=== PATIENT | male | born 1950 | race Caucasian/White ===

== ENCOUNTER 2018-04-09 17:59 | Inpatient (IN) | payer OTHER, MEDICARE, BC ==
[~2018-04-09] VITALS: Ht 182.9 cm; Wt 95.0 kg
[2018-04-09 18:22] LABS: HEMATOCRIT 46.1 % (39.0-50.0); HEMOGLOBIN 15.1 g/dl (14.0-18.0); IMMATURE GRANULOCYTES 0.6 % (0.0-5.0); MEAN CELL VOLUME 94.3 fL CALC (80.0-100.0); MEAN CORPUSCULAR HGB 30.9 pG CALC (26.0-32.0); MEAN CORPUSCULAR HGB CONC 32.8 g/L CALC (32.0-36.0); NEUT# 7.35 thou/uL (1.82-7.42); RED BLOOD COUNT 4.89 mill/uL (4.70-6.10)
[2018-04-09 18:44] LABS: ALBUMIN 3.3 g/dL (3.2-5.0); ALKALINE PHOSPHATASE 78 u/l (38-126); ANION GAP 14 (6-22 (CALC)); BILIRUBIN, TOTAL 0.9 mg/dL (0.0-1.4); BUN 19 mg/dL (8-23); BUN/CREATININE RATIO 12 (12-20 (CALC)); CARBON DIOXIDE 25 mmol/l (22-30); CHLORIDE 104 mmol/l (95-108); CREATININE 1.6 mg/dL (0.7-1.3); GFR 43 ML/MIN (>=60 (CALC)); GFR FOR AFR.AMER. 52 ML/MIN (>=60 (CALC)); POTASSIUM 4.5 mmol/l (3.5-5.1); SGOT/AST 16 u/l (19-48); SODIUM 138 mmol/l (137-146); TOTAL PROTEIN 6.5 g/dL (6.3-8.2)
[2018-04-09 21:55] VITALS: BP 119/67
[2018-04-09 23:56] LABS: URINE BILIRUBIN - DIPSTICK NEGATIVE (NEGATIVE); URINE BLOOD DIPSTICK NEGATIVE (NEGATIVE); URINE COLOR YELLOW; URINE GLUCOSE - DIPSTICK NEGATIVE (NEGATIVE); URINE KETONE NEGATIVE (NEGATIVE); URINE LEUK ESTERASE NEGATIVE (Negative); URINE NITRITE - DIPSTICK NEGATIVE (Negative); URINE PROTEIN - DIPSTICK NEGATIVE (NEG-TRACE)
[2018-04-09 23:57] LABS: URINE CLARITY TURBID
[2018-04-10 00:05] VITALS: BP 120/58
[2018-04-10 04:15] VITALS: BP 107/64
[2018-04-10 08:36] VITALS: BP 142/75
[2018-04-10 11:19] VITALS: BP 126/75
[2018-04-10 12:25] LABS: HEMATOCRIT 49.2 % (39.0-50.0); HEMOGLOBIN 15.4 g/dl (14.0-18.0); IMMATURE GRANULOCYTES 0.5 % (0.0-5.0); MEAN CELL VOLUME 98.8 fL CALC (80.0-100.0); MEAN CORPUSCULAR HGB 30.9 pG CALC (26.0-32.0); MEAN CORPUSCULAR HGB CONC 31.3 g/L CALC (32.0-36.0); NEUT# 6.47 thou/uL (1.82-7.42); RED BLOOD COUNT 4.98 mill/uL (4.70-6.10); RED CELL DISTRI WIDTH 15.1 % (11.5-15.5)
[2018-04-10] MEDS ORDERED: NORTRIPTYLINE H75 MG PO (12:39)
[2018-04-10 12:42] LABS: ANION GAP 12 (6-22 (CALC)); BUN 14 mg/dL (8-23); BUN/CREATININE RATIO 21 (12-20 (CALC)); CARBON DIOXIDE 24 mmol/l (22-30); CHLORIDE 110 mmol/l (95-108); CREATININE 0.7 mg/dL (0.7-1.3); GFR > 60 ML/MIN (>=60 (CALC)); GFR FOR AFR.AMER. > 60 ML/MIN (>=60 (CALC)); POTASSIUM 4.6 mmol/l (3.5-5.1); SODIUM 140 mmol/l (137-146)
[2018-04-10] MEDS ORDERED: LYRICA50 MG PO (12:43)
[2018-04-10] MEDS ORDERED: COLACE100 MG PO (12:44)
[2018-04-10] MEDS ORDERED: LISINOPRIL10 MG PO (12:44)
[2018-04-10] MEDS ORDERED: COREG6.25 MG PO (12:46)
[2018-04-10] MEDS ORDERED: [UNRECOGNIZED DRUG - OTHER] PO (12:47)
[2018-04-10] MEDS ORDERED: MINIPRESS2 MG PO (12:47)
[2018-04-10] MEDS ORDERED: SYMBICORT1 AE1 PO (12:48)
[2018-04-10] MEDS ORDERED: GNP MELATONIN3 MG PO (12:48)
[2018-04-10] MEDS ORDERED: FOLIC ACID1 M1 PO (12:49)
[2018-04-10] MEDS ORDERED: [UNRECOGNIZED DRUG - OTHER] PO (12:49)
[2018-04-10] MEDS ORDERED: CLOPIDOGREL75 MG PO (12:49)
[2018-04-10] MEDS ORDERED: ZYLOPRIM300 MG PO (12:50)
[2018-04-10 16:20] VITALS: BP 128/74
[2018-04-10] MEDS ORDERED: ALBUTEROL0.5 % NEB (16:38)
[2018-04-10] MEDS ORDERED: PROVENTIL HFA PO (16:41)
[2018-04-10] MEDS ORDERED: AMMONIUM LAC122 TOP (16:42)
[2018-04-10] MEDS ORDERED: DICLOFENAC SODIUM1 % TOP (16:46)
[2018-04-10] MEDS ORDERED: METFORMIN500 M2 PO (16:51)
[2018-04-10] MEDS ORDERED: ULTRAM50 M1 PO (16:53)
[2018-04-10] MEDS ORDERED: CIPROFLOXACN500 MG PO (16:54)
[2018-04-10 20:00] VITALS: BP 113/53
[2018-04-11 00:36] VITALS: BP 115/59
[2018-04-11 05:20] VITALS: BP 112/56
[2018-04-11 05:41] LABS: ALBUMIN 3.1 g/dL (3.2-5.0); ALKALINE PHOSPHATASE 76 u/l (38-126); ANION GAP 12 (6-22 (CALC)); BILIRUBIN, TOTAL 0.5 mg/dL (0.0-1.4); BUN 13 mg/dL (8-23); BUN/CREATININE RATIO 23 (12-20 (CALC)); CARBON DIOXIDE 22 mmol/l (22-30); CHLORIDE 109 mmol/l (95-108); CREATININE 0.6 mg/dL (0.7-1.3); GFR > 60 ML/MIN (>=60 (CALC)); GFR FOR AFR.AMER. > 60 ML/MIN (>=60 (CALC)); HEMATOCRIT 43.5 % (39.0-50.0); HEMOGLOBIN 14.6 g/dl (14.0-18.0); IMMATURE GRANULOCYTES 0.6 % (0.0-5.0); MAGNESIUM 2.1 mg/dL (1.6-2.3); MEAN CELL VOLUME 93.1 fL CALC (80.0-100.0); MEAN CORPUSCULAR HGB 31.3 pG CALC (26.0-32.0); MEAN CORPUSCULAR HGB CONC 33.6 g/L CALC (32.0-36.0); NEUT# 7.35 thou/uL (1.82-7.42); POTASSIUM 4.7 mmol/l (3.5-5.1); RED BLOOD COUNT 4.67 mill/uL (4.70-6.10); RED CELL DISTRI WIDTH 14.6 % (11.5-15.5); SGOT/AST 17 u/l (19-48); SODIUM 139 mmol/l (137-146); TOTAL PROTEIN 6.2 g/dL (6.3-8.2)
[2018-04-11 08:19] VITALS: BP 140/64
[2018-04-11 11:51] VITALS: BP 149/79
[2018-04-11 16:00] VITALS: BP 153/73
[2018-04-11 19:53] VITALS: BP 153/79
[2018-04-12 00:21] VITALS: BP 141/71
[2018-04-12 04:00] VITALS: BP 138/71
[2018-04-12 05:29] LABS: HEMATOCRIT 45.2 % (39.0-50.0); HEMOGLOBIN 15.4 g/dl (14.0-18.0); IMMATURE GRANULOCYTES 0.5 % (0.0-5.0); MEAN CELL VOLUME 90.9 fL CALC (80.0-100.0); MEAN CORPUSCULAR HGB CONC 34.1 g/L CALC (32.0-36.0); NEUT# 8.83 thou/uL (1.82-7.42); RED BLOOD COUNT 4.97 mill/uL (4.70-6.10); RED CELL DISTRI WIDTH 14.7 % (11.5-15.5)
[2018-04-12 06:02] LABS: ALBUMIN 3.5 g/dL (3.2-5.0); ALKALINE PHOSPHATASE 82 u/l (38-126); ANION GAP 14 (6-22 (CALC)); BILIRUBIN, TOTAL 0.5 mg/dL (0.0-1.4); BUN 13 mg/dL (8-23); BUN/CREATININE RATIO 21 (12-20 (CALC)); CARBON DIOXIDE 26 mmol/l (22-30); CHLORIDE 105 mmol/l (95-108); CREATININE 0.6 mg/dL (0.7-1.3); GFR > 60 ML/MIN (>=60 (CALC)); GFR FOR AFR.AMER. > 60 ML/MIN (>=60 (CALC)); MAGNESIUM 2.1 mg/dL (1.6-2.3); POTASSIUM 4.1 mmol/l (3.5-5.1); SGOT/AST 17 u/l (19-48); SODIUM 140 mmol/l (137-146); TOTAL PROTEIN 6.7 g/dL (6.3-8.2)
[2018-04-12 07:36] VITALS: BP 130/74
[2018-04-12 11:20] VITALS: BP 139/76
[2018-04-12] MEDS ORDERED: DOXYCYCL HYC100 MG PO (15:20)
[2018-04-12] MEDS ORDERED: PREDNISONE10 MG PO (15:20)
== END 2018-04-12 16:38 | disposition home or self-care (01) | DRG 291 ==
LOC: ED 17:59 → ED-I 18:44 → ED 21:32 → MS2 21:33
PROVIDERS: Emergency Medicine; ADMIT Internal Medicine; ATTEND Internal Medicine Nephrology
DX: I11.0 Hypertensive heart disease with heart failure (principal); J96.02 Acute respiratory failure with hypercapnia; J96.01 Acute respiratory failure with hypoxia; J44.1 Chronic obstructive pulmonary disease with (acute) exacerbation; N17.9 Acute kidney failure, unspecified; E87.2 Acidosis; J44.0 Chronic obstructive pulmonary disease with (acute) lower respiratory infection; I50.41 Acute combined systolic (congestive) and diastolic (congestive) heart failure; J20.9 Acute bronchitis, unspecified; I25.2 Old myocardial infarction; F17.200 Nicotine dependence, unspecified, uncomplicated; R73.9 Hyperglycemia, unspecified; E78.5 Hyperlipidemia, unspecified; Z86.73 Personal history of transient ischemic attack (TIA), and cerebral infarction without residual deficits; Z95.828 Presence of other vascular implants and grafts
CPT/HCPCS: G0378; J1650

== ENCOUNTER 2020-07-14 19:36 | Observation (INO) | payer MEDICARE, BC ==
[~2020-07-14] VITALS: Ht 182.9 cm; Wt 82.0 kg
[~2020-07-14 19:36] MED LIST: ALBUTEROL0.5 % NEB; AMMONIUM LAC122 TOP; CIPROFLOXACN500 MG PO; CLOPIDOGREL75 MG PO; COLACE100 MG PO; COREG6.25 MG PO; DICLOFENAC SODIUM1 % TOP; DOXYCYCL HYC100 MG PO; FOLIC ACID1 M1 PO; GNP MELATONIN3 MG PO; LISINOPRIL10 MG PO; LYRICA50 MG PO; METFORMIN500 M2 PO; MINIPRESS2 MG PO; NORTRIPTYLINE H75 MG PO; PREDNISONE10 MG PO; PROVENTIL HFA PO; SYMBICORT1 AE1 PO; ULTRAM50 M1 PO; ZYLOPRIM300 MG PO; [UNRECOGNIZED DRUG - OTHER] PO; [UNRECOGNIZED DRUG - OTHER] PO
--- NOTE | 2020-07-14 19:36 | NUR ---
PT TO ROOM VIA EMS FOR BEDSIDE TRIAGE
--- NOTE | 2020-07-14 19:45 | NUR ---
PT NOT FORTHCOMING WITH INFORMATION REQUIRES FREQUENT REPEATED QUESTIONS TO OBTAIN ANSWERS, PT SOB STARTING TODAY WORSENING ALSO FEVER 99.8 AND REQUIRED FREQUENT REMINDERS THAT HE CANNOT HAVE A BLANKET UNTIL FEVER IMPROVED. LLE REDDENED AND SORE WITH LARGE SKIN TEAR THAT OCCURED DURING FALL, THAT HAPPENED APPARENTLY JUST PRIOR TO EMS ARRIVAL. LUNGS ARE CORASE WITH DYSPNEA AND MOIST COUGH NOTED. O2 AT HOME THAT PT WEARS PRN PER HIM HE DOESN'T KNOW HOW MANY LITERS, PLACED ON 2L VIA NC.
[2020-07-14 20:22] LABS: HEMATOCRIT 45.4 % (39.0-50.0); HEMOGLOBIN 14.8 g/dl (14.0-18.0); IMMATURE GRANULOCYTES 0.8 % (0.0-5.0); MEAN CORPUSCULAR HGB 29.8 pG CALC (26.0-32.0); MEAN CORPUSCULAR HGB CONC 32.6 g/dL CAL (32.0-36.0); NEUT# 11.51 thou/uL (1.82-7.42); RED BLOOD COUNT 4.96 mill/uL (4.70-6.10); RED CELL DISTRI WIDTH 14.8 % (11.5-15.5)
[2020-07-14 20:23] LABS: MEAN CELL VOLUME 91.5 fL CALC (80.0-100.0)
[2020-07-14 20:33] LABS: ALBUMIN 4.3 g/dL (3.2-5.0); ALKALINE PHOSPHATASE 82 u/l (38-126); ANION GAP 12 (6-22 (CALC)); BILIRUBIN, TOTAL 1.1 mg/dL (0.0-1.4); BUN 12 mg/dL (8-23); BUN/CREATININE RATIO 15 (12-20 (CALC)); CARBON DIOXIDE 27 mmol/l (22-30); CHLORIDE 99 mmol/l (95-108); CREATININE 0.8 mg/dL (0.7-1.3); GFR > 60 ML/MIN (>=60 (CALC)); GFR FOR AFR.AMER. > 60 ML/MIN (>=60 (CALC)); POTASSIUM 4.3 mmol/l (3.5-5.1); SGOT/AST 26 u/l (19-48); SODIUM 134 mmol/l (137-146); TOTAL PROTEIN 8.5 g/dL (6.3-8.2)
[2020-07-14 20:38] LABS: PROTHROMBIN TIME 10.1 SECONDS (9.0-12.5)
[2020-07-14 20:45] LABS: MYOGLOBIN 34 ng/mL (0 - 121)
--- NOTE | 2020-07-14 20:57 | NUR ---
RT PROVIDED NEB TREATMENT AND PT MEDICATED ORDERED, WILL CONTINUE TO MONITOR.
--- NOTE | 2020-07-14 21:00 | NUR ---
PT UNCOOPERATIVE WIWHT COVID SWAB FINALLY ABLE TO OBTAIN AFTER PT EDUCATED REGARDING HAVING TO BE IN THE COVID HALLWAY WIHTOUT SWAB.
--- NOTE | 2020-07-14 21:30 | NUR ---
TA BEDSIDE PT UNCOOPERQTIVE WITH WOUND CARE AND TELLS NURSE TO "JUST QUIT GOD DAMMIT THAT HURTS" ATTEMPTED TO EDUCATED PT REGARDING THE IMPORTANCE OF WOUND CARE PT SHRUGS HIS SHOULDERS AND DECLINES FURTHER WOUND CARE. STATES "TRY LIVING WITH HIM HE'S HARD HEADED AND WON'T QUIT SMOKING EITHER".
[2020-07-14 21:41] LABS: URINE BILIRUBIN - DIPSTICK NEGATIVE (NEGATIVE); URINE BLOOD DIPSTICK NEGATIVE (NEGATIVE); URINE COLOR YELLOW; URINE GLUCOSE - DIPSTICK NEGATIVE (NEGATIVE); URINE KETONE NEGATIVE (NEGATIVE); URINE LEUK ESTERASE NEGATIVE (NEGATIVE); URINE PROTEIN - DIPSTICK NEGATIVE (NEG-TRACE)
[2020-07-14 21:42] LABS: URINE NITRITE - DIPSTICK NEGATIVE (Negative)
--- NOTE | 2020-07-14 22:40 | NUR ---
REPORT CALLED TO JOSE MORRISON ONMED SURG
[2020-07-14 22:57] VITALS: BP 127/68
--- NOTE | 2020-07-14 22:58 | NUR ---
PT RECEIVED FROM ED TO ROOM 271. ARRIVES VIA STRETCHER ACCOMPANIED BY JULIANNA MORRISON. PT AMBULATORY TO BED. GAIT UNSTEADY. PT DENIES PAIN AT THIS TIME. ORIENTED TO UNIT, ROOM, CALL BORJA, LIGHTS, TV. ICE WATER PROVIDED. CALL BORJA WITHIN REACH. AGREES TO CALL PRN.
--- NOTE | 2020-07-14 23:05 | NUR ---
PT TRANSPORTED TO MED SURG VIA STRETCHER AND MAX SLIDE ASSIST TO BED, ACCEPTING NURSE JOSE PRESENT AT ARRIVAL. ALL BELONGINGS WITH PATIENT.
--- NOTE | 2020-07-15 00:10 | NUR ---
PHYSICAL ASSESMENT COMPLETE. PT CURRENTLY DENIES PAIN OR DISCOMFORT. SCHEDULED MEDICATIONS AND PRN MEDICATION ADMINISTERED, SEE E-MAR. PT DENIES ANY NEEDS AT THIS TIME. PLAN OF CARE REVIEWED, PT DENIES QUESTIONS, VERBALIZES UNDERSTANDING. ITEMS WITHIN REACH, BED LOCKED IN LOW POSITION W/ BEDRAILS UP X2. CALL BORJA WITHIN REACH, AGREES TO CALL PRN.
[2020-07-15 04:00] VITALS: BP 115/66
--- NOTE | 2020-07-15 04:12 | NUR ---
PT RESTING IN BED, NO SIGNS OF DISTRESS NOTED, RESP DIMINISHED. PT VOICES NO NEEDS OR COMPLAINTS AT THIS TIME. CALL LIGHT IN REACH, CONTINUE TO MONITOR.
[2020-07-15 05:55] LABS: HEMOGLOBIN 13.7 g/dl (14.0-18.0); IMMATURE GRANULOCYTES 0.8 % (0.0-5.0); MEAN CELL VOLUME 90.9 fL CALC (80.0-100.0); MEAN CORPUSCULAR HGB 29.7 pG CALC (26.0-32.0); MEAN CORPUSCULAR HGB CONC 32.6 g/dL CAL (32.0-36.0); NEUT# 9.72 thou/uL (1.82-7.42); RED BLOOD COUNT 4.62 mill/uL (4.70-6.10); RED CELL DISTRI WIDTH 14.8 % (11.5-15.5)
[2020-07-15 06:16] LABS: ANION GAP 10 (6-22 (CALC)); BUN 10 mg/dL (8-23); BUN/CREATININE RATIO 16 (12-20 (CALC)); CARBON DIOXIDE 27 mmol/l (22-30); CHLORIDE 103 mmol/l (95-108); CREATININE 0.6 mg/dL (0.7-1.3); GFR > 60 ML/MIN (>=60 (CALC)); GFR FOR AFR.AMER. > 60 ML/MIN (>=60 (CALC)); POTASSIUM 3.8 mmol/l (3.5-5.1); SODIUM 135 mmol/l (137-146)
--- NOTE | 2020-07-15 07:00 | NUR ---
PT REPORT RECEIVED FROM NIGHT NURSEJOSE.
[2020-07-15 07:53] VITALS: BP 128/73
--- NOTE | 2020-07-15 08:00 | NUR ---
PT WAS FOUND RESTING IN BED;PT IS A&O X3;VS AND ASSESSMENT WERE COMPLETED AT THIS TIME;HEART SOUNDS ARE REGULAR IN RATE AND RHYTHM;LUNG SOUNDS ARE DIMINISHED WITH WHEEZES NOTED THROUGHOUT;RESPIRATIONS ARE EVEN WITH EXERTIONAL SOB ON O2 @2L VIA NC;PT HAS 2+EDEMA IN LEFT FOOT;PT ALSO HAS A SKIN TEAR ON HIS LEFT PAUL THAT IS COVERED WITH A DRESSING THAT IS CDI;LEFT FOOT IS ELEVATED ON PILLOWS TO HELP OFFLOAD PRESSURE;#16G IV IN LFA IS RUNNING NS @80ML/HR;IV SITE IS FREE OF COMPLICATIONS;SAFETY PRECAUTIONS IN PLACE;CALL LIGHT WITHIN REACH;BED IN LOWEST POSITION;WILL CONTINUE TO MONITOR.
[2020-07-15] MEDS ORDERED: OXYCODONE15 MG PO (08:08)
--- NOTE | 2020-07-15 08:59 | NUR ---
AND AR JEFFERSON AT BEDSIDE DISCUSSING POC WITH PT.
--- NOTE | 2020-07-15 12:00 | NUR ---
PT WAS FOUND SLEEPING IN BED;O2 @3L VIA NC IS IN PLACE;#16G IV IN LFA IS RUNNING NS @80ML/HR;IV SITE IS FREE OF COMPLICATIONS;SAFETY PRECAUTIONS IN PLACE;CALL LIGHT WITHIN REACH;BED IN LOWEST POSITION;WILL CONTINUE TO MONITOR.
[2020-07-15 15:36] VITALS: BP 139/64
--- NOTE | 2020-07-15 16:00 | NUR ---
PT WAS FOUND SLEEPING IN BED;#16G IV IN LFA IS RUNNING NS @80ML/HR;IV SITE IS FREE OF COMPLICATIONS;O2 @3L VIA NC IS IN PLACE;SAFETY PRECAUTIONS IN PLACE;CALL LIGHT WITHIN REACH;BED IN LOWEST POSITION;WILL CONTINUE TO MONITOR.
[2020-07-15 19:00] VITALS: BP 116/59
--- NOTE | 2020-07-15 20:12 | NUR ---
PHYSICAL ASSESMENT COMPLETE. PT CURRENTLY DENIES PAIN BUT HAS A NON PRODUCTIVE COUGH. SCHEDULED MEDICATIONS AND PRN MEDICATION ADMINISTERED, SEE E-MAR. PT DENIES ANY NEEDS AT THIS TIME. PLAN OF CARE REVIEWED, PT DENIES QUESTIONS, VERBALIZES UNDERSTANDING. ITEMS WITHIN REACH, BED LOCKED IN LOW POSITION W/ BEDRAILS UP X2. CALL BORJA WITHIN REACH, AGREES TO CALL PRN.
[2020-07-16 03:40] VITALS: BP 132/64
[2020-07-16 05:32] LABS: HEMATOCRIT 37.3 % (39.0-50.0); HEMOGLOBIN 12.1 g/dl (14.0-18.0); MEAN CELL VOLUME 92.6 fL CALC (80.0-100.0); MEAN CORPUSCULAR HGB CONC 32.4 g/dL CAL (32.0-36.0); RED BLOOD COUNT 4.03 mill/uL (4.70-6.10); RED CELL DISTRI WIDTH 14.9 % (11.5-15.5)
--- NOTE | 2020-07-16 05:51 | NUR ---
PT LAYING IN BED WITH EYES CLOSED, APPEARS TO BE SLEEPING, APPEARS COMFORTABLE AND IN NO DISTRESS. RESPIRATIONS REGULAR AND UNLABORED. ITEMS REMAIN WITHIN REACH, CALL BORJA REMAINS WITHIN REACH. BED REMAINS LOCKED AND IN LOW POSITION WITH BEDRAILS UP X2. WILL CONTINUE TO MONITOR.
[2020-07-16 05:52] LABS: ANION GAP 7 (6-22 (CALC)); BUN 16 mg/dL (8-23); BUN/CREATININE RATIO 28 (12-20 (CALC)); CARBON DIOXIDE 27 mmol/l (22-30); CHLORIDE 107 mmol/l (95-108); CREATININE 0.6 mg/dL (0.7-1.3); GFR > 60 ML/MIN (>=60 (CALC)); GFR FOR AFR.AMER. > 60 ML/MIN (>=60 (CALC)); POTASSIUM 4.2 mmol/l (3.5-5.1); SODIUM 137 mmol/l (137-146)
[2020-07-16 07:05] VITALS: BP 106/57
--- NOTE | 2020-07-16 08:00 | NUR ---
PT WAS FOUND RESTING IN BED EATING BREAKFAST;PT IS A&O X3;VS AND ASSESSMENT WERE COMPLETED;PT HAS NO REPORTS OF PAIN AT THIS TIME;HEART SOUNDS ARE REGULAR IN RATE AND RHYTHM;LUNG SOUNDS ARE DIMINISHED THROUGHOUT WITH WHEEZING NOTED;RESPIRATIONS ARE EVEN AND UNLABORED ON O2 @3L VIA NC;PT DOES HAVE EXERTIONAL SOB NOTED WELL;#16G IV IN LFA IS RUNNING NS @80ML/HR;IV SITE IS FREE OF COMPLICATIONS;SAFETY PRECAUTIONS IN PLACE;CALL LIGHT WITHIN REACH;BED IN LOWEST POSITION;WILL CONTINUE TO MONITOR.
[2020-07-16 09:04] VITALS: BP 106/57
--- NOTE | 2020-07-16 10:11 | NUR ---
PHYSICAL THERAPY AT BEDSIDE WORKING WITH PT.
--- NOTE | 2020-07-16 10:37 | NUR ---
Pt seen this am for treatment. He was without complaint, resting in bed. Pt moved supine to and from sit indep, sit to and from stand with supervisio, he did sit down one time with decreased control. He did not want help or therapist to close but gait belt in place and therapist close enough to assist. Gait with RW 40' with supervision/CGA. LE ex performed in bed including AROM/ankle pumps and isometric glut and quadsets. [facility] would benefit from home health to return to [facility].
[2020-07-16] MEDS ORDERED: DOXYCYCL HYC100 MG PO (10:57)
[2020-07-16] MEDS ORDERED: PREDNISONE10 MG PO (10:57)
--- NOTE | 2020-07-16 12:00 | NUR ---
PT WAS FOUND RESTING IN BED EATING LUNCH;PT HAS NO REPORTS OF PAIN AT THIS TIME;O2 @3L VIA NC IS IN PLACE;#16G IV IN LFA IS RUNNING NS @80ML/HR;IV SITE IS FREE OF COMPLICATIONS;SAFETY PRECAUTIONS IN PLACE;CALL LIGHT WITHIN REACH;BED IN LOWEST POSITION;WILL CONTINUE TO MONITOR.
--- NOTE | 2020-07-16 14:36 | NUR ---
Discharge instructions given. Patient verbalizes understanding of same. Discharged in stable condition via Wheelchair to Home with family. All belongings sent with pt. PT WAS GIVEN DISCHARGE PACKET AND PRESCRIPTIONS;DISCHARGE INSTRUCTIONS WERE EXPLAINED WELL PRESCRIPTIONS;PT EXPRESSED UNDERSTANDING AND HAD NO FURTHER QUESTIONS;SIGNATURE OBTAINED;IV WAS REMOVED WITH NO COMPLICATIONS AND CATHETER INTACT;TELE WAS REMOVED;PT WAS TRANSPORTED IN STABLE CONDITION VIA WC TO [facility] ACCOMPANIED BY STAFF;ALL PT BELONGINGS WERE SENT WITH PT;PT WILL BE TRANSPORTED HOME WITH FAMILY.
--- NOTE | 2020-07-17 11:28 | NUR ---
PRELIM BLOOD CX SHOWS GRAM POSITIVE COCCI IN 2 OF 4 BOTTLES, SAME SET. LIKELY CONTAMINANT. SPUTUM CX SHOWS PSEUDOMONAS. RESULTS REPORTED TO DR OSORIO, NEW RX FOR CIPROFLOXACIN 750MG PO BID X7 DAYS CALLED IN TO [facility]. CALLED PT LM, WILL SEND CERTIFIED LETTER IF I DONT HEAR BACK NOTIFYING OF RX CHANGE
--- NOTE | 2020-07-17 11:45 | NUR ---
pt called back, aware of abx change
--- NOTE | 2020-07-18 11:16 | NUR ---
FINAL BLOOD CX SHOWS KOCURIA SPECIES, CONTAMINANT. DR OSORIO NOTIFIED
== END 2020-07-16 14:36 | disposition home health service (06) ==
LOC: ED 19:36 → ED-I 21:16 → ED 21:30 → MS2 21:31
PROVIDERS: Family Medicine; Nurse Practitioner; ADMIT Internal Medicine; ATTEND Internal Medicine
DX: J44.1 Chronic obstructive pulmonary disease with (acute) exacerbation (principal); L03.116 Cellulitis of left lower limb; S81.812A Laceration without foreign body, left lower leg, initial encounter; E11.51 Type 2 diabetes mellitus with diabetic peripheral angiopathy without gangrene; I10 Essential (primary) hypertension; E11.40 Type 2 diabetes mellitus with diabetic neuropathy, unspecified; I25.10 Atherosclerotic heart disease of native coronary artery without angina pectoris; L28.0 Lichen simplex chronicus; G89.4 Chronic pain syndrome; F17.200 Nicotine dependence, unspecified, uncomplicated; W19.XXXA Unspecified fall, initial encounter; Z79.84 Long term (current) use of oral hypoglycemic drugs; Z95.828 Presence of other vascular implants and grafts; Z86.73 Personal history of transient ischemic attack (TIA), and cerebral infarction without residual deficits; Z91.81 History of falling; Z20.822 Contact with and (suspected) exposure to COVID-19
CPT/HCPCS: G0378; J1650

== ENCOUNTER 2021-06-25 18:02 | Emergency (ER) | payer MEDICARE, BC ==
[2021-06-25] VITALS (9 sets, daily range): BP systolic 108–140; BP diastolic 55–78
[~2021-06-25] VITALS: Ht 182.9 cm; Wt 85.0 kg
[~2021-06-25 18:02] MED LIST changes: +OXYCODONE15 MG PO
[2021-06-25 19:23] LABS: HEMATOCRIT 40.8 % (39.0-50.0); HEMOGLOBIN 13.3 g/dl (14.0-18.0); IMMATURE GRANULOCYTES 0.3 % (0.0-5.0); MEAN CELL VOLUME 94.2 fL CALC (80.0-100.0); MEAN CORPUSCULAR HGB 30.7 pG CALC (26.0-32.0); MEAN CORPUSCULAR HGB CONC 32.6 g/dL CAL (32.0-36.0); NEUT# 4.01 thou/uL (1.82-7.42); RED BLOOD COUNT 4.33 mill/uL (4.70-6.10); RED CELL DISTRI WIDTH 14.5 % (11.5-15.5)
[2021-06-25 19:33] LABS: ALBUMIN 3.5 g/dL (3.2-5.0); ALKALINE PHOSPHATASE 71 u/l (38-126); ANION GAP 10 (6-22 (CALC)); BILIRUBIN, TOTAL 0.7 mg/dL (0.0-1.4); BUN 10 mg/dL (8-23); BUN/CREATININE RATIO 12 (12-20 (CALC)); CARBON DIOXIDE 28 mmol/l (22-30); CHLORIDE 102 mmol/l (95-108); CREATININE 0.9 mg/dL (0.7-1.3); GFR > 60 ML/MIN (>=60 (CALC)); GFR FOR AFR.AMER. > 60 ML/MIN (>=60 (CALC)); POTASSIUM 3.8 mmol/l (3.5-5.1); SGOT/AST 19 u/l (19-48); SODIUM 136 mmol/l (137-146); TOTAL PROTEIN 7.1 g/dL (6.3-8.2)
[2021-06-25] MEDS ORDERED: BACTRIM DS1 TAB PO (19:38)
== END 2021-06-25 21:27 | disposition home or self-care (01) ==
LOC: ED 18:02
PROVIDERS: Emergency Medicine
DX: S81.812A Laceration without foreign body, left lower leg, initial encounter (principal); L08.9 Local infection of the skin and subcutaneous tissue, unspecified; J44.9 Chronic obstructive pulmonary disease, unspecified; F17.200 Nicotine dependence, unspecified, uncomplicated; B95.61 Methicillin susceptible Staphylococcus aureus infection as the cause of diseases classified elsewhere; W22.8XXA Striking against or struck by other objects, initial encounter; Z86.73 Personal history of transient ischemic attack (TIA), and cerebral infarction without residual deficits; Z95.828 Presence of other vascular implants and grafts; Z85.828 Personal history of other malignant neoplasm of skin

== ENCOUNTER 2021-07-18 12:30 | Emergency (ER) | payer MEDICARE, BC ==
[~2021-07-18] VITALS: Ht 185.4 cm; Wt 84.0 kg
[~2021-07-18 12:30] MED LIST changes: +BACTRIM DS1 TAB PO
[2021-07-18 13:43] LABS: HEMATOCRIT 42.6 % (39.0-50.0); HEMOGLOBIN 13.3 g/dl (14.0-18.0); IMMATURE GRANULOCYTES 0.2 % (0.0-5.0); MEAN CELL VOLUME 96.6 fL CALC (80.0-100.0); MEAN CORPUSCULAR HGB 30.2 pG CALC (26.0-32.0); MEAN CORPUSCULAR HGB CONC 31.2 g/dL CAL (32.0-36.0); NEUT# 3.43 thou/uL (1.82-7.42); RED BLOOD COUNT 4.41 mill/uL (4.70-6.10); RED CELL DISTRI WIDTH 14.6 % (11.5-15.5)
[2021-07-18 13:54] LABS: ALBUMIN 3.5 g/dL (3.2-5.0); ALKALINE PHOSPHATASE 79 u/l (38-126); ANION GAP 11 (6-22 (CALC)); BILIRUBIN, TOTAL 0.6 mg/dL (0.0-1.4); BUN 6 mg/dL (8-23); BUN/CREATININE RATIO 10 (12-20 (CALC)); CARBON DIOXIDE 29 mmol/l (22-30); CHLORIDE 103 mmol/l (95-108); CREATININE 0.7 mg/dL (0.7-1.3); GFR > 60 ML/MIN (>=60 (CALC)); GFR FOR AFR.AMER. > 60 ML/MIN (>=60 (CALC)); SGOT/AST 21 u/l (19-48); SODIUM 139 mmol/l (137-146); TOTAL PROTEIN 7.1 g/dL (6.3-8.2)
[2021-07-18 14:35] LABS: INTERNATIONAL NORMALIZED RATIO 0.9 RATIO (0.7-1.3); PROTHROMBIN TIME 9.9 SECONDS (9.0-12.5)
[2021-07-18] MEDS ORDERED: ELIQUIS5 MG PO (15:45)
[2021-07-18 16:31] VITALS: BP 139/81
== END 2021-07-18 16:20 | disposition home or self-care (01) ==
LOC: ED 12:30
PROVIDERS: Emergency Medicine
DX: I82.431 Acute embolism and thrombosis of right popliteal vein (principal); E11.42 Type 2 diabetes mellitus with diabetic polyneuropathy; I73.9 Peripheral vascular disease, unspecified; L97.823 Non-pressure chronic ulcer of other part of left lower leg with necrosis of muscle; R22.41 Localized swelling, mass and lump, right lower limb

== ENCOUNTER 2021-07-25 13:27 | Observation (INO) | payer OTHER, MEDICARE, BC ==
[~2021-07-25] VITALS: Ht 185.4 cm; Wt 85.0 kg
[~2021-07-25 13:27] MED LIST changes: +ELIQUIS5 MG PO
[2021-07-25 14:25] LABS: HEMATOCRIT 42.6 % (39.0-50.0); HEMOGLOBIN 13.3 g/dl (14.0-18.0); IMMATURE GRANULOCYTES 0.5 % (0.0-5.0); MEAN CELL VOLUME 94.7 fL CALC (80.0-100.0); MEAN CORPUSCULAR HGB 29.6 pG CALC (26.0-32.0); MEAN CORPUSCULAR HGB CONC 31.2 g/dL CAL (32.0-36.0); NEUT# 3.99 thou/uL (1.82-7.42); RED BLOOD COUNT 4.5 mill/uL (4.70-6.10); RED CELL DISTRI WIDTH 14.2 % (11.5-15.5)
[2021-07-25 14:54] LABS: ALBUMIN 3.2 g/dL (3.2-5.0); ALKALINE PHOSPHATASE 78 u/l (38-126); BILIRUBIN, TOTAL 0.4 mg/dL (0.0-1.4); BUN 6 mg/dL (8-23); BUN/CREATININE RATIO 9 (12-20 (CALC)); CHLORIDE 106 mmol/l (95-108); CREATININE 0.7 mg/dL (0.7-1.3); GFR > 60 ML/MIN (>=60 (CALC)); GFR FOR AFR.AMER. > 60 ML/MIN (>=60 (CALC)); LIPASE 50 u/l (23-300); SGOT/AST 16 u/l (19-48); SODIUM 139 mmol/l (137-146); TOTAL PROTEIN 6.5 g/dL (6.3-8.2)
[2021-07-25 15:02] LABS: ANION GAP 2 (6-22 (CALC)); CARBON DIOXIDE 35 mmol/l (22-30)
[2021-07-25 16:19] LABS: INTERNATIONAL NORMALIZED RATIO 1.9 RATIO (0.7-1.3); PROTHROMBIN TIME 19.2 SECONDS (9.0-12.5)
[2021-07-25 20:07] VITALS: BP 127/67
[2021-07-26 00:36] VITALS: BP 113/60
[2021-07-26 04:24] VITALS: BP 114/61
[2021-07-26 05:27] LABS: HEMATOCRIT 43.6 % (39.0-50.0); HEMOGLOBIN 13.8 g/dl (14.0-18.0); MEAN CELL VOLUME 94.8 fL CALC (80.0-100.0); MEAN CORPUSCULAR HGB CONC 31.7 g/dL CAL (32.0-36.0); RED BLOOD COUNT 4.6 mill/uL (4.70-6.10); RED CELL DISTRI WIDTH 14.3 % (11.5-15.5)
[2021-07-26 06:04] LABS: ANION GAP 8 (6-22 (CALC)); BUN 9 mg/dL (8-23); BUN/CREATININE RATIO 13 (12-20 (CALC)); CARBON DIOXIDE 31 mmol/l (22-30); CHLORIDE 105 mmol/l (95-108); CREATININE 0.7 mg/dL (0.7-1.3); GFR > 60 ML/MIN (>=60 (CALC)); GFR FOR AFR.AMER. > 60 ML/MIN (>=60 (CALC)); MAGNESIUM 2.2 mg/dL (1.6-2.3); POTASSIUM 4.1 mmol/l (3.5-5.1); SODIUM 140 mmol/l (137-146)
[2021-07-26 08:23] VITALS: BP 128/68
[2021-07-26 08:33] LABS: INTERNATIONAL NORMALIZED RATIO 1.1 RATIO (0.7-1.3); PROTHROMBIN TIME 11.4 SECONDS (9.0-12.5)
[2021-07-26 11:02] VITALS: BP 125/69
[2021-07-26] MEDS ORDERED: KLONOPIN2 MG PO (11:19)
[2021-07-26] MEDS ORDERED: TADALAFIL5 MG PO (11:21)
[2021-07-26 14:42] VITALS: BP 103/52
[2021-07-26 18:54] VITALS: BP 127/65
[2021-07-27] VITALS (8 sets, daily range): BP systolic 110–126; BP diastolic 53–84
[2021-07-27 05:13] LABS: HEMATOCRIT 40.5 % (39.0-50.0); HEMOGLOBIN 12.8 g/dl (14.0-18.0); IMMATURE GRANULOCYTES 0.3 % (0.0-5.0); MEAN CELL VOLUME 95.1 fL CALC (80.0-100.0); MEAN CORPUSCULAR HGB CONC 31.6 g/dL CAL (32.0-36.0); NEUT# 11.33 thou/uL (1.82-7.42); RED BLOOD COUNT 4.26 mill/uL (4.70-6.10); RED CELL DISTRI WIDTH 14.3 % (11.5-15.5)
[2021-07-27 05:47] LABS: ALBUMIN 2.9 g/dL (3.2-5.0); ALKALINE PHOSPHATASE 61 u/l (38-126); ANION GAP 6 (6-22 (CALC)); BILIRUBIN, TOTAL 0.2 mg/dL (0.0-1.4); BUN 18 mg/dL (8-23); BUN/CREATININE RATIO 28 (12-20 (CALC)); CARBON DIOXIDE 30 mmol/l (22-30); CHLORIDE 108 mmol/l (95-108); CREATININE 0.6 mg/dL (0.7-1.3); GFR > 60 ML/MIN (>=60 (CALC)); GFR FOR AFR.AMER. > 60 ML/MIN (>=60 (CALC)); MAGNESIUM 2.2 mg/dL (1.6-2.3); POTASSIUM 4.2 mmol/l (3.5-5.1); SGOT/AST 13 u/l (19-48); SODIUM 139 mmol/l (137-146)
[2021-07-28 00:24] VITALS: BP 112/63
[2021-07-28 04:57] VITALS: BP 141/67
[2021-07-28 05:27] LABS: HEMATOCRIT 46.4 % (39.0-50.0); HEMOGLOBIN 14.7 g/dl (14.0-18.0); IMMATURE GRANULOCYTES 0.7 % (0.0-5.0); MEAN CELL VOLUME 95.3 fL CALC (80.0-100.0); MEAN CORPUSCULAR HGB 30.2 pG CALC (26.0-32.0); MEAN CORPUSCULAR HGB CONC 31.7 g/dL CAL (32.0-36.0); NEUT# 11.59 thou/uL (1.82-7.42); RED BLOOD COUNT 4.87 mill/uL (4.70-6.10); RED CELL DISTRI WIDTH 14.3 % (11.5-15.5)
[2021-07-28 05:51] LABS: ALBUMIN 3.1 g/dL (3.2-5.0); ALKALINE PHOSPHATASE 60 u/l (38-126); ANION GAP 9 (6-22 (CALC)); BILIRUBIN, TOTAL 0.3 mg/dL (0.0-1.4); BUN 21 mg/dL (8-23); BUN/CREATININE RATIO 35 (12-20 (CALC)); CARBON DIOXIDE 27 mmol/l (22-30); CHLORIDE 106 mmol/l (95-108); CREATININE 0.6 mg/dL (0.7-1.3); GFR > 60 ML/MIN (>=60 (CALC)); GFR FOR AFR.AMER. > 60 ML/MIN (>=60 (CALC)); MAGNESIUM 2.1 mg/dL (1.6-2.3); POTASSIUM 4.8 mmol/l (3.5-5.1); SGOT/AST 20 u/l (19-48); SODIUM 137 mmol/l (137-146); TOTAL PROTEIN 6.2 g/dL (6.3-8.2)
[2021-07-28 07:21] VITALS: BP 119/65
[2021-07-28 10:40] VITALS: BP 122/62
[2021-07-28] MEDS ORDERED: VIBRAMYCIN100 M2 PO (11:46)
[2021-07-28] MEDS ORDERED: PREDNISONE10 MG PO (11:47)
== END 2021-07-28 13:23 | disposition home health service (06) | DRG 190 ==
LOC: ED 13:27 → ED-I 16:55 → ED 17:05 → MS2 17:06
PROVIDERS: Nurse Practitioner; ADMIT Internal Medicine; ATTEND Internal Medicine
DX: J44.1 Chronic obstructive pulmonary disease with (acute) exacerbation (principal); J18.9 Pneumonia, unspecified organism; J44.0 Chronic obstructive pulmonary disease with (acute) lower respiratory infection; I82.401 Acute embolism and thrombosis of unspecified deep veins of right lower extremity; R09.02 Hypoxemia; S81.802A Unspecified open wound, left lower leg, initial encounter; L89.159 Pressure ulcer of sacral region, unspecified stage; I10 Essential (primary) hypertension; E11.40 Type 2 diabetes mellitus with diabetic neuropathy, unspecified; I25.10 Atherosclerotic heart disease of native coronary artery without angina pectoris; F41.9 Anxiety disorder, unspecified; G89.4 Chronic pain syndrome; F17.210 Nicotine dependence, cigarettes, uncomplicated; X58.XXXA Exposure to other specified factors, initial encounter; Z79.01 Long term (current) use of anticoagulants; Z86.73 Personal history of transient ischemic attack (TIA), and cerebral infarction without residual deficits; Z95.828 Presence of other vascular implants and grafts; Z95.5 Presence of coronary angioplasty implant and graft; Z95.820 Peripheral vascular angioplasty status with implants and grafts; Z20.822 Contact with and (suspected) exposure to COVID-19
CPT/HCPCS: G0378; Q9967

== ENCOUNTER 2021-08-01 21:14 | Observation (INO) | payer OTHER, MEDICARE, BC ==
[~2021-08-01] VITALS: Ht 182.9 cm; Wt 95.0 kg
[~2021-08-01 21:14] MED LIST changes: +KLONOPIN2 MG PO; +TADALAFIL5 MG PO; +VIBRAMYCIN100 M2 PO
[2021-08-01] MEDS ORDERED: WALKER/ADULT/FOLDING XX (23:00)
[2021-08-01 23:56] LABS: HEMATOCRIT 42.2 % (39.0-50.0); HEMOGLOBIN 13.4 g/dl (14.0-18.0); IMMATURE GRANULOCYTES 1.2 % (0.0-5.0); MEAN CELL VOLUME 95.5 fL CALC (80.0-100.0); MEAN CORPUSCULAR HGB 30.3 pG CALC (26.0-32.0); MEAN CORPUSCULAR HGB CONC 31.8 g/dL CAL (32.0-36.0); NEUT# 12.29 thou/uL (1.82-7.42); RED BLOOD COUNT 4.42 mill/uL (4.70-6.10); URINE BILIRUBIN - DIPSTICK NEGATIVE (NEGATIVE); URINE BLOOD DIPSTICK NEGATIVE (NEGATIVE); URINE COLOR YELLOW; URINE GLUCOSE - DIPSTICK NEGATIVE (NEGATIVE); URINE KETONE 15 mg/dL (NEGATIVE); URINE LEUK ESTERASE NEGATIVE (NEGATIVE); URINE PROTEIN - DIPSTICK NEGATIVE (NEG-TRACE); URINE SPECIFIC GRAVITY 1.025; URINE UROBILINOGEN - DIPSTICK 0.2 E.U./dL (0.2)
[2021-08-01 23:59] LABS: URINE NITRITE - DIPSTICK NEGATIVE (Negative)
[2021-08-02 00:19] LABS: ALBUMIN 3.4 g/dL (3.2-5.0); ALKALINE PHOSPHATASE 63 u/l (38-126); ANION GAP 14 (6-22 (CALC)); BILIRUBIN, TOTAL 0.3 mg/dL (0.0-1.4); BUN 24 mg/dL (8-23); BUN/CREATININE RATIO 25 (12-20 (CALC)); CARBON DIOXIDE 24 mmol/l (22-30); CHLORIDE 108 mmol/l (95-108); GFR > 60 ML/MIN (>=60 (CALC)); GFR FOR AFR.AMER. > 60 ML/MIN (>=60 (CALC)); POTASSIUM 3.8 mmol/l (3.5-5.1); SGOT/AST 19 u/l (19-48); SODIUM 142 mmol/l (137-146); TOTAL PROTEIN 6.1 g/dL (6.3-8.2)
[2021-08-02 00:46] VITALS: BP 117/60
[2021-08-02 00:53] VITALS: BP 117/60
[2021-08-02 03:21] VITALS: BP 117/65
[2021-08-02 08:11] VITALS: BP 127/75
[2021-08-02 15:32] VITALS: BP 97/48
[2021-08-02 19:11] VITALS: BP 105/45
[2021-08-03] VITALS (8 sets, daily range): BP systolic 98–116; BP diastolic 47–58
[2021-08-03 05:00] LABS: IMMATURE GRANULOCYTES 1.5 % (0.0-5.0); MEAN CELL VOLUME 95.8 fL CALC (80.0-100.0); MEAN CORPUSCULAR HGB 30.6 pG CALC (26.0-32.0); NEUT# 7.09 thou/uL (1.82-7.42); RED BLOOD COUNT 3.53 mill/uL (4.70-6.10); RED CELL DISTRI WIDTH 15.2 % (11.5-15.5)
[2021-08-03 05:06] LABS: HEMATOCRIT 33.8 % (39.0-50.0); HEMOGLOBIN 10.8 g/dl (14.0-18.0)
[2021-08-03 05:14] LABS: ALKALINE PHOSPHATASE 46 u/l (38-126); ANION GAP 6 (6-22 (CALC)); BILIRUBIN, TOTAL 0.4 mg/dL (0.0-1.4); BUN 19 mg/dL (8-23); BUN/CREATININE RATIO 28 (12-20 (CALC)); CARBON DIOXIDE 27 mmol/l (22-30); CHLORIDE 105 mmol/l (95-108); CREATININE 0.7 mg/dL (0.7-1.3); GFR > 60 ML/MIN (>=60 (CALC)); GFR FOR AFR.AMER. > 60 ML/MIN (>=60 (CALC)); MAGNESIUM 1.9 mg/dL (1.6-2.3); POTASSIUM 3.9 mmol/l (3.5-5.1); SGOT/AST 17 u/l (19-48); SODIUM 135 mmol/l (137-146)
[2021-08-03 05:16] LABS: ALBUMIN 2.3 g/dL (3.2-5.0); TOTAL PROTEIN 4.7 g/dL (6.3-8.2)
[2021-08-04 04:13] VITALS: BP 111/55
[2021-08-04 05:06] LABS: HEMATOCRIT 34.2 % (39.0-50.0); HEMOGLOBIN 10.8 g/dl (14.0-18.0); IMMATURE GRANULOCYTES 1.1 % (0.0-5.0); MEAN CORPUSCULAR HGB CONC 31.6 g/dL CAL (32.0-36.0); NEUT# 7.2 thou/uL (1.82-7.42); RED BLOOD COUNT 3.6 mill/uL (4.70-6.10); RED CELL DISTRI WIDTH 15.4 % (11.5-15.5)
[2021-08-04 05:39] LABS: ALBUMIN 2.5 g/dL (3.2-5.0); ALKALINE PHOSPHATASE 52 u/l (38-126); ANION GAP 5 (6-22 (CALC)); BUN 15 mg/dL (8-23); BUN/CREATININE RATIO 22 (12-20 (CALC)); CARBON DIOXIDE 26 mmol/l (22-30); CHLORIDE 105 mmol/l (95-108); CREATININE 0.7 mg/dL (0.7-1.3); GFR > 60 ML/MIN (>=60 (CALC)); GFR FOR AFR.AMER. > 60 ML/MIN (>=60 (CALC)); MAGNESIUM 2.1 mg/dL (1.6-2.3); POTASSIUM 4.4 mmol/l (3.5-5.1); SGOT/AST 19 u/l (19-48); SODIUM 132 mmol/l (137-146); TOTAL PROTEIN 5.1 g/dL (6.3-8.2)
[2021-08-04 05:41] LABS: BILIRUBIN, TOTAL 0.7 mg/dL (0.0-1.4)
[2021-08-04 08:42] VITALS: BP 109/56
[2021-08-04 12:00] VITALS: BP 110/52
[2021-08-05] MEDS ORDERED: PROVENTIL108 MCG/AC PO (15:09)
[2021-08-05] MEDS ORDERED: TUSSI-PRE2 PO (15:09)
[2021-08-05] MEDS ORDERED: ZPAK PO (15:09)
[2021-08-05] MEDS ORDERED: OMNICEF300 M1 PO (15:09)
[2021-08-05] MEDS ORDERED: PREDNISONE20 MG PO (15:09)
[2021-08-05] MEDS ORDERED: VENTOLIN HFA108 MCG PO (15:09)
== END 2021-08-04 16:43 | DRG 299 ==
LOC: ED 21:14 → MS2 23:31
PROVIDERS: Family Medicine; Nurse Practitioner; ADMIT Hospitalist; ATTEND Hospitalist
DX: E11.51 Type 2 diabetes mellitus with diabetic peripheral angiopathy without gangrene (principal); I70.213 Atherosclerosis of native arteries of extremities with intermittent claudication, bilateral legs; J18.9 Pneumonia, unspecified organism; J44.0 Chronic obstructive pulmonary disease with (acute) lower respiratory infection; S81.811A Laceration without foreign body, right lower leg, initial encounter; S81.812A Laceration without foreign body, left lower leg, initial encounter; S51.011A Laceration without foreign body of right elbow, initial encounter; E11.40 Type 2 diabetes mellitus with diabetic neuropathy, unspecified; I10 Essential (primary) hypertension; I25.10 Atherosclerotic heart disease of native coronary artery without angina pectoris; G89.4 Chronic pain syndrome; F41.9 Anxiety disorder, unspecified; F17.210 Nicotine dependence, cigarettes, uncomplicated; V58.4XXA Person boarding or alighting a pick-up truck or van injured in noncollision transport accident, initial encounter; S81.802A Unspecified open wound, left lower leg, initial encounter; X58.XXXA Exposure to other specified factors, initial encounter; Z91.81 History of falling; Z95.820 Peripheral vascular angioplasty status with implants and grafts; Z86.73 Personal history of transient ischemic attack (TIA), and cerebral infarction without residual deficits; Z95.828 Presence of other vascular implants and grafts; Z86.718 Personal history of other venous thrombosis and embolism; Z95.5 Presence of coronary angioplasty implant and graft; Z79.02 Long term (current) use of antithrombotics/antiplatelets; Z20.822 Contact with and (suspected) exposure to COVID-19
CPT/HCPCS: J7626; Q9967

== ENCOUNTER 2021-08-05 09:33 | Emergency (ER) | payer OTHER, MEDICARE, BC ==
[~2021-08-05] VITALS: Ht 182.9 cm; Wt 85.0 kg
[~2021-08-05 09:33] MED LIST changes: +WALKER/ADULT/FOLDING XX
[2021-08-05 11:09] LABS: HEMATOCRIT 34.3 % (39.0-50.0); HEMOGLOBIN 10.8 g/dl (14.0-18.0); IMMATURE GRANULOCYTES 0.9 % (0.0-5.0); MEAN CELL VOLUME 95.5 fL CALC (80.0-100.0); MEAN CORPUSCULAR HGB 30.1 pG CALC (26.0-32.0); MEAN CORPUSCULAR HGB CONC 31.5 g/dL CAL (32.0-36.0); NEUT# 7.75 thou/uL (1.82-7.42); RED BLOOD COUNT 3.59 mill/uL (4.70-6.10); RED CELL DISTRI WIDTH 15.7 % (11.5-15.5)
[2021-08-05 11:24] LABS: PROTHROMBIN TIME 10.3 SECONDS (9.0-12.5)
[2021-08-05 11:26] LABS: ALKALINE PHOSPHATASE 67 u/l (38-126); ANION GAP 6 (6-22 (CALC)); BILIRUBIN, TOTAL 0.8 mg/dL (0.0-1.4); BUN 15 mg/dL (8-23); BUN/CREATININE RATIO 21 (12-20 (CALC)); CARBON DIOXIDE 31 mmol/l (22-30); CHLORIDE 101 mmol/l (95-108); CPK 29 u/l (52-200); CREATININE 0.7 mg/dL (0.7-1.3); GFR > 60 ML/MIN (>=60 (CALC)); GFR FOR AFR.AMER. > 60 ML/MIN (>=60 (CALC)); LIPASE 32 u/l (23-300); MAGNESIUM 2.1 mg/dL (1.6-2.3); POTASSIUM 4.3 mmol/l (3.5-5.1); SGOT/AST 21 u/l (19-48); SODIUM 134 mmol/l (137-146)
[2021-08-05 11:27] LABS: ALBUMIN 3.2 g/dL (3.2-5.0); TOTAL PROTEIN 6.3 g/dL (6.3-8.2)
[2021-08-05] MEDS ORDERED: TUSSI-PRE2 PO (15:09)
[2021-08-05] MEDS ORDERED: PROVENTIL108 MCG/AC PO (15:09)
[2021-08-05] MEDS ORDERED: OMNICEF300 M1 PO (15:09)
[2021-08-05] MEDS ORDERED: VENTOLIN HFA108 MCG PO (15:09)
[2021-08-05] MEDS ORDERED: PREDNISONE20 MG PO (15:09)
[2021-08-05] MEDS ORDERED: ZPAK PO (15:09)
[2021-08-05 15:49] VITALS: BP 124/65
== END 2021-08-05 16:41 | disposition home or self-care (01) | DRG 194 ==
LOC: ED 09:33
PROVIDERS: Internal Medicine
DX: J18.9 Pneumonia, unspecified organism (principal); J44.0 Chronic obstructive pulmonary disease with (acute) lower respiratory infection; I10 Essential (primary) hypertension; E11.9 Type 2 diabetes mellitus without complications; F41.9 Anxiety disorder, unspecified; F17.200 Nicotine dependence, unspecified, uncomplicated; Z79.01 Long term (current) use of anticoagulants; Z86.718 Personal history of other venous thrombosis and embolism; Z95.828 Presence of other vascular implants and grafts; Z86.73 Personal history of transient ischemic attack (TIA), and cerebral infarction without residual deficits
CPT/HCPCS: Q9967

== ENCOUNTER 2022-01-09 03:18 | Observation (INO) | payer MEDICARE, BC ==
[~2022-01-09] VITALS: Ht 185.4 cm; Wt 76.0 kg
[2022-01-09] VITALS (14 sets, daily range): BP systolic 96–123; BP diastolic 57–84
[~2022-01-09 03:18] MED LIST changes: +CYCLOBENZAPRINE10 MG PO; +DOCUSATE SOD100 MG PO; +FOLIC ACID1 M1; +METFORMIN HCL500 M1 PO; +NORTRIPTYLIN PO; +OMNICEF300 M1 PO; +PREDNISONE20 MG PO; +PROVENTIL108 MCG/AC PO; +SPIRIVA IN; +TADALAFIL5 MG; +TUSSI-PRE2 PO; +VENTOLIN HFA108 MCG PO; +ZOCOR10 MG PO; +ZPAK PO
[2022-01-09 06:02] LABS: IMMATURE GRANULOCYTES 0.2 % (0.0-5.0); MEAN CELL VOLUME 90.9 fL CALC (80.0-100.0); MEAN CORPUSCULAR HGB CONC 31.9 g/dL CAL (32.0-36.0); NEUT# 6.27 thou/uL (1.82-7.42); RED BLOOD COUNT 4.72 mill/uL (4.70-6.10); RED CELL DISTRI WIDTH 14.8 % (11.5-15.5)
[2022-01-09 06:06] LABS: HEMATOCRIT 42.9 % (39.0-50.0); HEMOGLOBIN 13.7 g/dl (14.0-18.0)
[2022-01-09 06:30] LABS: ALKALINE PHOSPHATASE 84 u/l (38-126); BUN 12 mg/dL (8-23); BUN/CREATININE RATIO 14 (12-20 (CALC)); CARBON DIOXIDE 27 mmol/l (22-30); CHLORIDE 102 mmol/l (95-108); CREATININE 0.9 mg/dL (0.7-1.3); GFR FOR AFR.AMER. > 60 ML/MIN (>=60 (CALC)); GFR OTHER RACES > 60 ML/MIN (>=60 (CALC)); POTASSIUM 3.9 mmol/l (3.5-5.1); SGOT/AST 21 u/l (19-48)
[2022-01-09 06:32] LABS: ANION GAP 17 (6-22 (CALC)); SODIUM 142 mmol/l (137-146); TOTAL PROTEIN 7.6 g/dL (6.3-8.2)
[2022-01-09 06:43] LABS: MYOGLOBIN 33 ng/mL (0 - 121)
--- NOTE | 2022-01-09 06:47 | NUR ---
Pt slept throughout the night; waiting for CTA; VSS, nad
--- NOTE | 2022-01-09 16:47 | NUR ---
71 YEAR OLD MALE RECEIVED FROM THE ED TODAY TO [facility] FOR SHORTNESS OF BREATH . PATIENT STATES CALLED THE [facility]MEERGENCY [facility]PLE HOURS AFTER NOT ABLE TO BREATHE PROPERLY , ON ARRIVALPT IS AOX 4 DENIES ANY PAIN OR DISCOMFORT , VSS , NO SIGNS OF DESTRESS NOTED AT THIS TIME.MILD SOB NOTED , OXYGEN THERAPY INITIATED AT 3L/MIN , WET COUGH NOTED . PT HAD RECEIVED ANTIBIOTICS IN THE ED ,SAFETY PRECAUTION INITIATED AND ONGOING , CALL LIGHT AND PHON WITHIN REACH , CONTINUE TO MONITOR PATIENT.
[2022-01-10 04:00] VITALS: BP 128/74
[2022-01-10 06:29] VITALS: BP 126/72
--- NOTE | 2022-01-10 08:05 | NUR ---
RECIEVED REPORT. PT A/OX3. RESPIRATIONS EVEN AND UNLABORED ON 3L NC, HOME DEPENDENT. LUNG SOUNDS CLEAR. HEART RHYTHM CHRISTIANE WITH TELE IN PLACE. BOWEL SOUNDS ACTIVE. #20G RAC PATENT. SKIN INTACT. PEDAL PULSES WEAK. HX PVD. PT DENIES OF ANY PAINS.GLUCOSE 159, PT REFUSING INSULIN, WASTED AT THIS TIME. PT ORIENTED TO ROOM AND CALL SYSTEM. PT DENIES OF ANY NEEDS. ALL SAFTEY PRECAUTIONS ARE IN PLACE WITH CALL LIGHT IN REACH
--- NOTE | 2022-01-10 12:30 | NUR ---
PT ASSISTED OUT OF SHOWER. TELE MONITORING REAPPLIED. #20G RAC OCCLUDED. ATTEMPTED TO RESTART, UNSUCCESSFUL. DIFFERENT NURSE TO ATTEMPT. PT DENIES OF ANY NEEDS AT THIS TIME. ALL SAFETY PRECAUTIONS ARE IN PLACE WITH CALL LIGHT IN REACH
--- NOTE | 2022-01-10 13:22 | NUR ---
PT EDUCATED ON NEED OF URINE AND SPUTUM CULTURE. PT VERBLAIZED UNDERSTANDING. I.S PROVIDED. PT EDUCATED ON USAGE.OFFERED MOM, PT REFUSED AT THIS TIME.
--- NOTE | 2022-01-10 13:54 | NUR ---
NEW #22G RFA STARTED, SITE PATENT
[2022-01-10 16:42] VITALS: BP 113/59
--- NOTE | 2022-01-10 16:58 | NUR ---
PT RESTING IN SEMI FOWLERS POSITION. RESPIRATIONS EVEN AND UNLBOARED ON 3L NC. TELE MONITORING ION PLACE. #22G RFA NOTED. PT DENIES OF ANY C/O. ALL SAFTEY PRECAUTIONS ARE IN PLACE WITH CALL LIGHT IN REACH
--- NOTE | 2022-01-10 17:12 | NUR ---
GLUOCSE RESULTING IN 161. PT CONTINUES TO REFUSE INSULIN DUE TO NOT TAKING IT AT HOME.
[2022-01-10 17:46] LABS: URINE BILIRUBIN - DIPSTICK NEGATIVE (NEGATIVE); URINE BLOOD DIPSTICK NEGATIVE (NEGATIVE); URINE COLOR YELLOW; URINE GLUCOSE - DIPSTICK NEGATIVE (NEGATIVE); URINE KETONE NEGATIVE (NEGATIVE); URINE LEUK ESTERASE NEGATIVE (NEGATIVE); URINE PH 6.5 (4.5-8.0); URINE PROTEIN - DIPSTICK NEGATIVE (NEG-TRACE); URINE SPECIFIC GRAVITY <=1.005; URINE UROBILINOGEN - DIPSTICK 0.2 E.U./dL (0.2)
[2022-01-10 17:47] LABS: URINE NITRITE - DIPSTICK NEGATIVE (Negative)
[2022-01-10 18:45] VITALS: BP 125/67
[2022-01-10 23:58] VITALS: BP 116/68
[2022-01-11 03:41] VITALS: BP 128/68
[2022-01-11 05:43] LABS: HEMATOCRIT 41.4 % (39.0-50.0); HEMOGLOBIN 13.3 g/dl (14.0-18.0); MEAN CELL VOLUME 92.2 fL CALC (80.0-100.0); MEAN CORPUSCULAR HGB 29.6 pG CALC (26.0-32.0); MEAN CORPUSCULAR HGB CONC 32.1 g/dL CAL (32.0-36.0); RED BLOOD COUNT 4.49 mill/uL (4.70-6.10); RED CELL DISTRI WIDTH 14.7 % (11.5-15.5)
[2022-01-11 06:18] LABS: BUN 17 mg/dL (8-23); BUN/CREATININE RATIO 23 (12-20 (CALC)); CARBON DIOXIDE 29 mmol/l (22-30); CHLORIDE 103 mmol/l (95-108); CREATININE 0.7 mg/dL (0.7-1.3); GFR FOR AFR.AMER. > 60 ML/MIN (>=60 (CALC)); GFR OTHER RACES > 60 ML/MIN (>=60 (CALC)); SODIUM 139 mmol/l (137-146)
[2022-01-11 06:25] VITALS: BP 114/62
[2022-01-11 06:26] LABS: ANION GAP 12 (6-22 (CALC)); POTASSIUM 4.7 mmol/l (3.5-5.1)
--- NOTE | 2022-01-11 07:42 | NUR ---
RECIEVED REPORT. PT A/OX3. RESPIRATIONS EVEN AND UNLABORED ON 3L NC.PT CONTINUES TO REMOVED O2, O2 DESAT TO 88%. PT RE-EDUCATED MULTIPLE TIMES TO LEAVE O2 ON. LUNG SOUNDS DIMINISHED WITH PRODUCTIVE COUGH. I.S AT BEDSIDE, REACH 1000. PT EDUCATED ON USAGE. HEART RHYTHM NORMAL WITH TELE IN PLACE. BOWEL SOUNDS ACTIVE, LBM 01/07/22. MOM ADMINISTERED. #22G RFA INFILTARTED, NEW IV TO BE STARTED. PT DENIES OF ANY PAINS OR DISCOMFORTS. ALL SAFTEY PRECAUTIONS ARE IN PLACE WITH CALL LIGHT IN REACH
--- NOTE | 2022-01-11 08:39 | NUR ---
PT ON 3L NC. O2 SAT 95%
--- NOTE | 2022-01-11 10:20 | NUR ---
#20G RFA INFILTARTED WHEN RECIEVING IV ABX. ATTEMPTED TO OBTAIN IV BY 2 DIFFERENT NURSES. PT INFORMED AIRCRAFT ENGINE SPECIALIST OF POSSIBLE DC TODAY. ORDERS FROM ARCADIO GILMORE TO CHANGE ROCPHIN TO IM AND ZITHRO TO PO.
[2022-01-11] MEDS ORDERED: ZITHROMAX500 MG PO (11:28)
[2022-01-11] MEDS ORDERED: CEFDINIR300 MG PO (11:28)
[2022-01-11] MEDS ORDERED: PREDNISONE10 MG PO (11:29)
[2022-01-11] MEDS ORDERED: ELIQUIS5 MG PO (11:31)
[2022-01-11 11:47] VITALS: BP 143/63
--- NOTE | 2022-01-11 12:36 | NUR ---
PT RESTING IN SEMI FOWLERS POSITION EATING LUNCH. RESPIRATIONS EVEN AND UNLABORED ON 3L NC. TELE MONITORING IN PLACE. PT INFORMED OF DC. HOME O2 AND TRANSPORTATION TO BE ARRANGED. PT DENIES OF ANY NEEDS. ALL SAFTEY PRECAUTIONS ARE IN PLACE WITH CALL LIGHT IN REACH
--- NOTE | 2022-01-11 13:15 | NUR ---
PT EDUCATED ON DC INSTRUCTIONS AND NEW MEDICATIONS. VERBLAIZED UNDERSTANDING. NO IV. TELE REMOVED, ER INFORMED. [facility] CALLED
--- NOTE | 2022-01-11 14:22 | NUR ---
[facility] TRANSPORT TO TAKE PT HOME. AWAITING ARRIVAL
--- NOTE | 2022-01-11 14:56 | NUR ---
Discharge instructions given. Patient verbalizes understanding of same. Discharged in stable condition via Wheelchair to Home with *Other. All belongings sent with pt.
== END 2022-01-11 14:57 | disposition home or self-care (01) ==
LOC: ED 03:18 → ED-I 07:20 → ED 07:48 → MS2 07:49
PROVIDERS: Emergency Medicine; ADMIT Internal Medicine; ATTEND Internal Medicine
DX: J44.1 Chronic obstructive pulmonary disease with (acute) exacerbation (principal); J18.9 Pneumonia, unspecified organism; J44.0 Chronic obstructive pulmonary disease with (acute) lower respiratory infection; J96.21 Acute and chronic respiratory failure with hypoxia; I10 Essential (primary) hypertension; E11.51 Type 2 diabetes mellitus with diabetic peripheral angiopathy without gangrene; I25.10 Atherosclerotic heart disease of native coronary artery without angina pectoris; F41.9 Anxiety disorder, unspecified; G89.4 Chronic pain syndrome; F17.200 Nicotine dependence, unspecified, uncomplicated; Z99.81 Dependence on supplemental oxygen; Z86.711 Personal history of pulmonary embolism; Z95.828 Presence of other vascular implants and grafts; Z85.820 Personal history of malignant melanoma of skin; Z86.718 Personal history of other venous thrombosis and embolism; Z79.84 Long term (current) use of oral hypoglycemic drugs; Z95.820 Peripheral vascular angioplasty status with implants and grafts; Z86.73 Personal history of transient ischemic attack (TIA), and cerebral infarction without residual deficits; Z59.1 Inadequate housing; Z20.822 Contact with and (suspected) exposure to COVID-19; Z23 Encounter for immunization
CPT/HCPCS: G0378; Q9967

== ENCOUNTER 2022-03-07 17:09 | Emergency (ER) | payer MEDICARE, BC ==
[~2022-03-07] VITALS: Ht 185.4 cm; Wt 81.8 kg
[~2022-03-07 17:09] MED LIST changes: +CEFDINIR300 MG PO; +ZITHROMAX500 MG PO
[2022-03-07 17:24] VITALS: BP 138/84
[2022-03-07 18:33] LABS: IMMATURE GRANULOCYTES 0.3 % (0.0-5.0); MEAN CELL VOLUME 91.9 fL CALC (80.0-100.0); MEAN CORPUSCULAR HGB 29.9 pG CALC (26.0-32.0); MEAN CORPUSCULAR HGB CONC 32.6 g/dL CAL (32.0-36.0); NEUT# 8.02 thou/uL (1.82-7.42); RED BLOOD COUNT 4.68 mill/uL (4.70-6.10); RED CELL DISTRI WIDTH 14.5 % (11.5-15.5)
[2022-03-07 18:41] LABS: ALBUMIN 4.3 g/dL (3.2-5.0); ALKALINE PHOSPHATASE 81 u/l (38-126); ANION GAP 15 (6-22 (CALC)); BILIRUBIN, TOTAL 0.6 mg/dL (0.0-1.4); BUN 19 mg/dL (8-23); BUN/CREATININE RATIO 19 (12-20 (CALC)); CARBON DIOXIDE 26 mmol/l (22-30); CHLORIDE 106 mmol/l (95-108); GFR FOR AFR.AMER. > 60 ML/MIN (>=60 (CALC)); GFR OTHER RACES > 60 ML/MIN (>=60 (CALC)); SGOT/AST 30 u/l (19-48); SODIUM 141 mmol/l (137-146); TOTAL PROTEIN 7.6 g/dL (6.3-8.2)
[2022-03-07 18:47] LABS: PROTHROMBIN TIME 10.2 SECONDS (9.0-12.5)
[2022-03-07 22:11] VITALS: BP 127/79
[2022-03-07 22:31] VITALS: BP 119/65
[2022-03-07 23:00] VITALS: BP 122/77
[2022-03-07 23:30] VITALS: BP 119/62
[2022-03-08] VITALS (9 sets, daily range): BP systolic 92–122; BP diastolic 60–71
== END 2022-03-08 04:18 ==
LOC: ED 17:09
PROVIDERS: Emergency Medicine
PROC: 0W9900Z Drainage of Right Pleural Cavity with Drainage Device, Open Approach (ICD-10-PCS; principal; 2022-03-07)
PROC: 0HQEXZZ Repair Left Lower Arm Skin, External Approach (ICD-10-PCS; 2022-03-07)
PROC: 0HQDXZZ Repair Right Lower Arm Skin, External Approach (ICD-10-PCS; 2022-03-07)
PROC: 0HQLXZZ Repair Left Lower Leg Skin, External Approach (ICD-10-PCS; 2022-03-07)
DX: S27.0XXA Traumatic pneumothorax, initial encounter (principal); S22.31XA Fracture of one rib, right side, initial encounter for closed fracture; S51.012A Laceration without foreign body of left elbow, initial encounter; S51.011A Laceration without foreign body of right elbow, initial encounter; S81.012A Laceration without foreign body, left knee, initial encounter; E11.51 Type 2 diabetes mellitus with diabetic peripheral angiopathy without gangrene; I50.9 Heart failure, unspecified; F17.200 Nicotine dependence, unspecified, uncomplicated; W10.9XXA Fall (on) (from) unspecified stairs and steps, initial encounter; Y92.009 Unspecified place in unspecified non-institutional (private) residence as the place of occurrence of the external cause; Z86.73 Personal history of transient ischemic attack (TIA), and cerebral infarction without residual deficits; Z86.718 Personal history of other venous thrombosis and embolism; Z86.711 Personal history of pulmonary embolism; Z79.84 Long term (current) use of oral hypoglycemic drugs; Z79.01 Long term (current) use of anticoagulants
CPT/HCPCS: Q9967

== ENCOUNTER 2022-06-04 14:32 | Inpatient (IN) | payer MEDICARE, BC ==
[~2022-06-04] VITALS: Ht 185.4 cm; Wt 76.2 kg
[2022-06-04] VITALS (14 sets, daily range): BP systolic 105–152; BP diastolic 54–94
[2022-06-04 15:15] LABS: BASO% 0.4 % (0-3); EOS% 2.2 % (0-8); HEMATOCRIT 43.7 % (39.0-50.0); HEMOGLOBIN 13.7 g/dl (14.0-18.0); IMMATURE GRANULOCYTES 0.2 % (0.0-5.0); MEAN CELL VOLUME 89.9 fL CALC (80.0-100.0); MEAN CORPUSCULAR HGB 28.2 pG CALC (26.0-32.0); MEAN CORPUSCULAR HGB CONC 31.4 g/dL CAL (32.0-36.0); MONO% 9.6 % (2-13); NEUT# 3.68 thou/uL (1.82-7.42); NEUT% 66.6 % (42-76); RED BLOOD COUNT 4.86 mill/uL (4.70-6.10)
[2022-06-04 15:27] LABS: ALBUMIN 3.9 g/dL (3.2-5.0); ALKALINE PHOSPHATASE 81 u/l (38-126); ANION GAP 8 (6-22 (CALC)); BILIRUBIN, TOTAL 0.5 mg/dL (0.2-1.3); BUN 13 mg/dL (8-23); BUN/CREATININE RATIO 20 (12-20 (CALC)); CARBON DIOXIDE 30 mmol/l (22-30); CHLORIDE 104 mmol/l (95-108); CREATININE 0.6 mg/dL (0.7-1.3); GFR FOR AFR.AMER. > 60 ML/MIN (>=60 (CALC)); GFR OTHER RACES > 60 ML/MIN (>=60 (CALC)); SGOT/AST 20 u/l (19-48); SODIUM 138 mmol/l (137-146); TOTAL PROTEIN 7.5 g/dL (6.3-8.2)
[2022-06-04 15:31] LABS: PROTHROMBIN TIME 10.3 SECONDS (9.0-12.5)
[2022-06-04 19:23] LABS: URINE BILIRUBIN - DIPSTICK NEGATIVE (NEGATIVE); URINE BLOOD DIPSTICK NEGATIVE (NEGATIVE); URINE COLOR YELLOW; URINE GLUCOSE - DIPSTICK NEGATIVE (NEGATIVE); URINE KETONE 15 mg/dL (NEGATIVE); URINE LEUK ESTERASE NEGATIVE (NEGATIVE); URINE PROTEIN - DIPSTICK NEGATIVE (NEG-TRACE); URINE SPECIFIC GRAVITY 1.025
[2022-06-04 19:25] LABS: URINE NITRITE - DIPSTICK NEGATIVE (Negative)
[2022-06-05] VITALS (7 sets, daily range): BP systolic 113–143; BP diastolic 62–78
[2022-06-05 05:04] LABS: BASO% 0.2 % (0-3); HEMATOCRIT 40.4 % (39.0-50.0); HEMOGLOBIN 12.8 g/dl (14.0-18.0); IMMATURE GRANULOCYTES 0.2 % (0.0-5.0); LYMPH% 25.7 % (15-41); MEAN CELL VOLUME 89.4 fL CALC (80.0-100.0); MEAN CORPUSCULAR HGB 28.3 pG CALC (26.0-32.0); MEAN CORPUSCULAR HGB CONC 31.7 g/dL CAL (32.0-36.0); NEUT# 3.05 thou/uL (1.82-7.42); NEUT% 66.9 % (42-76); RED BLOOD COUNT 4.52 mill/uL (4.70-6.10); RED CELL DISTRI WIDTH 13.8 % (11.5-15.5)
[2022-06-05 05:22] LABS: ALBUMIN 3.5 g/dL (3.2-5.0); ALKALINE PHOSPHATASE 69 u/l (38-126); ANION GAP 13 (6-22 (CALC)); BILIRUBIN, TOTAL 0.3 mg/dL (0.2-1.3); BUN 17 mg/dL (8-23); BUN/CREATININE RATIO 29 (12-20 (CALC)); CARBON DIOXIDE 25 mmol/l (22-30); CHLORIDE 104 mmol/l (95-108); CREATININE 0.6 mg/dL (0.7-1.3); GFR FOR AFR.AMER. > 60 ML/MIN (>=60 (CALC)); GFR OTHER RACES > 60 ML/MIN (>=60 (CALC)); POTASSIUM 4.3 mmol/l (3.5-5.1); SGOT/AST 17 u/l (19-48); SODIUM 138 mmol/l (137-146); TOTAL PROTEIN 6.5 g/dL (6.3-8.2)
[2022-06-06 04:23] VITALS: BP 137/75
[2022-06-06 05:44] LABS: BASO% 0.1 % (0-3); HEMOGLOBIN 12.7 g/dl (14.0-18.0); IMMATURE GRANULOCYTES 0.3 % (0.0-5.0); LYMPH% 16.3 % (15-41); MEAN CELL VOLUME 90.1 fL CALC (80.0-100.0); MEAN CORPUSCULAR HGB 28.6 pG CALC (26.0-32.0); MEAN CORPUSCULAR HGB CONC 31.8 g/dL CAL (32.0-36.0); NEUT# 5.48 thou/uL (1.82-7.42); NEUT% 79.3 % (42-76); RED BLOOD COUNT 4.44 mill/uL (4.70-6.10); RED CELL DISTRI WIDTH 13.8 % (11.5-15.5)
[2022-06-06 06:01] LABS: ALBUMIN 3.4 g/dL (3.2-5.0); ALKALINE PHOSPHATASE 63 u/l (38-126); ANION GAP 9 (6-22 (CALC)); BUN 17 mg/dL (8-23); BUN/CREATININE RATIO 21 (12-20 (CALC)); CARBON DIOXIDE 27 mmol/l (22-30); CHLORIDE 106 mmol/l (95-108); CREATININE 0.8 mg/dL (0.7-1.3); GFR FOR AFR.AMER. > 60 ML/MIN (>=60 (CALC)); GFR OTHER RACES > 60 ML/MIN (>=60 (CALC)); POTASSIUM 3.9 mmol/l (3.5-5.1); SGOT/AST 20 u/l (19-48); SODIUM 137 mmol/l (137-146); TOTAL PROTEIN 6.9 g/dL (6.3-8.2)
[2022-06-06 06:59] VITALS: BP 139/69
[2022-06-06 10:19] VITALS: BP 142/70
[2022-06-06 14:41] VITALS: BP 148/77
[2022-06-06 18:41] VITALS: BP 145/76
[2022-06-07] VITALS (7 sets, daily range): BP systolic 122–134; BP diastolic 59–71
[2022-06-07 05:32] LABS: BASO% 0.1 % (0-3); HEMATOCRIT 41.5 % (39.0-50.0); HEMOGLOBIN 12.8 g/dl (14.0-18.0); IMMATURE GRANULOCYTES 0.4 % (0.0-5.0); LYMPH% 15.4 % (15-41); MEAN CELL VOLUME 91.2 fL CALC (80.0-100.0); MEAN CORPUSCULAR HGB 28.1 pG CALC (26.0-32.0); MEAN CORPUSCULAR HGB CONC 30.8 g/dL CAL (32.0-36.0); NEUT# 5.93 thou/uL (1.82-7.42); NEUT% 81.1 % (42-76); RED BLOOD COUNT 4.55 mill/uL (4.70-6.10); RED CELL DISTRI WIDTH 13.9 % (11.5-15.5)
[2022-06-07 05:45] LABS: ALBUMIN 3.2 g/dL (3.2-5.0); ALKALINE PHOSPHATASE 61 u/l (38-126); ANION GAP 7 (6-22 (CALC)); BUN 18 mg/dL (8-23); BUN/CREATININE RATIO 26 (12-20 (CALC)); CARBON DIOXIDE 30 mmol/l (22-30); CHLORIDE 106 mmol/l (95-108); CREATININE 0.7 mg/dL (0.7-1.3); GFR FOR AFR.AMER. > 60 ML/MIN (>=60 (CALC)); GFR OTHER RACES > 60 ML/MIN (>=60 (CALC)); MAGNESIUM 2.1 mg/dL (1.6-2.3); POTASSIUM 4.1 mmol/l (3.5-5.1); SGOT/AST 18 u/l (19-48); SODIUM 139 mmol/l (137-146); TOTAL PROTEIN 6.3 g/dL (6.3-8.2)
[2022-06-08 00:20] VITALS: BP 142/67
[2022-06-08 04:20] VITALS: BP 133/72
[2022-06-08 05:45] LABS: BASO% 0.1 % (0-3); HEMATOCRIT 40.7 % (39.0-50.0); HEMOGLOBIN 12.6 g/dl (14.0-18.0); IMMATURE GRANULOCYTES 0.5 % (0.0-5.0); MEAN CELL VOLUME 91.5 fL CALC (80.0-100.0); MEAN CORPUSCULAR HGB 28.3 pG CALC (26.0-32.0); MONO% 5.3 % (2-13); NEUT# 5.99 thou/uL (1.82-7.42); NEUT% 77.1 % (42-76); RED BLOOD COUNT 4.45 mill/uL (4.70-6.10); RED CELL DISTRI WIDTH 13.7 % (11.5-15.5)
[2022-06-08 06:07] LABS: ALBUMIN 3.2 g/dL (3.2-5.0); ALKALINE PHOSPHATASE 59 u/l (38-126); ANION GAP 7 (6-22 (CALC)); BUN 22 mg/dL (8-23); BUN/CREATININE RATIO 33 (12-20 (CALC)); CARBON DIOXIDE 31 mmol/l (22-30); CHLORIDE 104 mmol/l (95-108); CREATININE 0.7 mg/dL (0.7-1.3); GFR FOR AFR.AMER. > 60 ML/MIN (>=60 (CALC)); GFR OTHER RACES > 60 ML/MIN (>=60 (CALC)); MAGNESIUM 2.1 mg/dL (1.6-2.3); POTASSIUM 4.1 mmol/l (3.5-5.1); SGOT/AST 17 u/l (19-48); SODIUM 137 mmol/l (137-146)
[2022-06-08 06:36] VITALS: BP 144/73
[2022-06-08 10:32] VITALS: BP 126/64
[2022-06-08] MEDS ORDERED: PREDNISONE10 MG PO (11:00)
[2022-06-08] MEDS ORDERED: VIBRAMYCIN100 M2 PO (11:01)
[2022-06-08] MEDS ORDERED: PULMICORT0.5 MG IN (11:02)
== END 2022-06-08 12:18 | disposition home or self-care (01) | DRG 190 ==
LOC: ED 14:32 → ED-I 18:05 → ED 18:20 → MS2 18:21
PROVIDERS: Emergency Medicine; Nurse Practitioner Family; ADMIT Internal Medicine; ATTEND Internal Medicine
DX: J44.1 Chronic obstructive pulmonary disease with (acute) exacerbation (principal); J18.9 Pneumonia, unspecified organism; J96.21 Acute and chronic respiratory failure with hypoxia; J44.0 Chronic obstructive pulmonary disease with (acute) lower respiratory infection; I11.0 Hypertensive heart disease with heart failure; I50.9 Heart failure, unspecified; E11.51 Type 2 diabetes mellitus with diabetic peripheral angiopathy without gangrene; I70.219 Atherosclerosis of native arteries of extremities with intermittent claudication, unspecified extremity; I25.10 Atherosclerotic heart disease of native coronary artery without angina pectoris; E11.40 Type 2 diabetes mellitus with diabetic neuropathy, unspecified; E78.5 Hyperlipidemia, unspecified; G89.4 Chronic pain syndrome; F17.210 Nicotine dependence, cigarettes, uncomplicated; Z79.84 Long term (current) use of oral hypoglycemic drugs; Z87.01 Personal history of pneumonia (recurrent); Z86.73 Personal history of transient ischemic attack (TIA), and cerebral infarction without residual deficits; Z86.711 Personal history of pulmonary embolism; Z86.718 Personal history of other venous thrombosis and embolism; Z99.81 Dependence on supplemental oxygen; Z95.828 Presence of other vascular implants and grafts; Z20.822 Contact with and (suspected) exposure to COVID-19
CPT/HCPCS: G0378

== ENCOUNTER 2022-08-19 21:20 | Emergency (ER) | payer MEDICARE, BC ==
[~2022-08-19] VITALS: Ht 185.4 cm; Wt 84.0 kg
[~2022-08-19 21:20] MED LIST changes: +PULMICORT0.5 MG IN
[2022-08-19 22:07] LABS: BASO% 0.3 % (0-3); EOS% 2.7 % (0-8); IMMATURE GRANULOCYTES 0.6 % (0.0-5.0); LYMPH% 26.8 % (15-41); MEAN CELL VOLUME 94.4 fL CALC (80.0-100.0); MEAN CORPUSCULAR HGB 29.3 pG CALC (26.0-32.0); MEAN CORPUSCULAR HGB CONC 31.1 g/dL CAL (32.0-36.0); MONO% 6.7 % (2-13); NEUT# 6.48 thou/uL (1.82-7.42); NEUT% 62.9 % (42-76); RED BLOOD COUNT 3.58 mill/uL (4.70-6.10); RED CELL DISTRI WIDTH 14.6 % (11.5-15.5)
[2022-08-19 22:08] LABS: HEMATOCRIT 33.8 % (39.0-50.0); HEMOGLOBIN 10.5 g/dl (14.0-18.0)
[2022-08-19 22:45] LABS: ANION GAP 11 (6-22 (CALC)); BUN 13 mg/dL (8-23); BUN/CREATININE RATIO 12 (12-20 (CALC)); CARBON DIOXIDE 30 mmol/l (22-30); CHLORIDE 101 mmol/l (95-108); CREATININE 1.1 mg/dL (0.7-1.3); GFR FOR AFR.AMER. > 60 ML/MIN (>=60 (CALC)); GFR OTHER RACES > 60 ML/MIN (>=60 (CALC)); SODIUM 137 mmol/l (137-146)
[2022-08-19 23:09] LABS: URINE BILIRUBIN - DIPSTICK NEGATIVE (NEGATIVE); URINE BLOOD DIPSTICK NEGATIVE (NEGATIVE); URINE COLOR YELLOW; URINE GLUCOSE - DIPSTICK NEGATIVE (NEGATIVE); URINE KETONE NEGATIVE (NEGATIVE); URINE LEUK ESTERASE NEGATIVE (NEGATIVE); URINE NITRITE - DIPSTICK NEGATIVE (Negative); URINE PROTEIN - DIPSTICK NEGATIVE (NEG-TRACE); URINE SPECIFIC GRAVITY <=1.005; URINE UROBILINOGEN - DIPSTICK 0.2 E.U./dL (0.2)
[2022-08-19] MEDS ORDERED: LASIX20 MG PO (23:39)
[2022-08-19] MEDS ORDERED: POTASSIUM CHLO20 ME1 PO (23:39)
[2022-08-19 23:43] VITALS: BP 113/81
== END 2022-08-20 00:04 | disposition home or self-care (01) ==
LOC: ED 21:20
PROVIDERS: Family Medicine
DX: I11.0 Hypertensive heart disease with heart failure (principal); I50.21 Acute systolic (congestive) heart failure; E11.51 Type 2 diabetes mellitus with diabetic peripheral angiopathy without gangrene; J44.9 Chronic obstructive pulmonary disease, unspecified; F41.9 Anxiety disorder, unspecified; F17.200 Nicotine dependence, unspecified, uncomplicated; Z79.01 Long term (current) use of anticoagulants; Z95.820 Peripheral vascular angioplasty status with implants and grafts; Z95.828 Presence of other vascular implants and grafts; Z86.73 Personal history of transient ischemic attack (TIA), and cerebral infarction without residual deficits; Z86.718 Personal history of other venous thrombosis and embolism; Z86.711 Personal history of pulmonary embolism; Z79.84 Long term (current) use of oral hypoglycemic drugs

== ENCOUNTER 2022-08-29 01:44 | Observation (INO) | payer MEDICARE, BC ==
[2022-08-29] VITALS (56 sets, daily range): BP systolic 76–125; BP diastolic 41–74
[~2022-08-29] VITALS: Ht 185.4 cm; Wt 76.9 kg
[~2022-08-29 01:44] MED LIST changes: +LASIX20 MG PO; +POTASSIUM CHLO20 ME1 PO
[2022-08-29 02:56] LABS: BASO% 0.4 % (0-3); EOS% 2.8 % (0-8); IMMATURE GRANULOCYTES 0.1 % (0.0-5.0); LYMPH% 21.2 % (15-41); MEAN CELL VOLUME 94.9 fL CALC (80.0-100.0); MEAN CORPUSCULAR HGB 29.3 pG CALC (26.0-32.0); MEAN CORPUSCULAR HGB CONC 30.9 g/dL CAL (32.0-36.0); MONO% 13.2 % (2-13); NEUT# 4.67 thou/uL (1.82-7.42); NEUT% 62.3 % (42-76); RED BLOOD COUNT 4.33 mill/uL (4.70-6.10); RED CELL DISTRI WIDTH 14.2 % (11.5-15.5)
[2022-08-29 03:02] LABS: HEMATOCRIT 41.1 % (39.0-50.0); HEMOGLOBIN 12.7 g/dl (14.0-18.0)
[2022-08-29 03:10] LABS: ALBUMIN 3.6 g/dL (3.2-5.0); ALKALINE PHOSPHATASE 82 u/l (38-126); ANION GAP 9 (6-22 (CALC)); BUN 10 mg/dL (8-23); BUN/CREATININE RATIO 11 (12-20 (CALC)); CARBON DIOXIDE 32 mmol/l (22-30); CHLORIDE 104 mmol/l (95-108); GFR FOR AFR.AMER. > 60 ML/MIN (>=60 (CALC)); GFR OTHER RACES > 60 ML/MIN (>=60 (CALC)); POTASSIUM 4.3 mmol/l (3.5-5.1); SGOT/AST 18 u/l (19-48); SODIUM 140 mmol/l (137-146); TOTAL PROTEIN 7.1 g/dL (6.3-8.2)
[2022-08-29 03:17] LABS: BILIRUBIN, TOTAL 0.4 mg/dL (0.2-1.3)
[2022-08-29 03:22] LABS: D-DIMER 1.86 mg/L (0.19-0.60); PROTHROMBIN TIME 10.3 SECONDS (9.0-12.5)
[2022-08-29] MEDS ORDERED: ALLOPURINOL300 MG PO (08:51)
[2022-08-29] MEDS ORDERED: PROTONIX40 M2 PO (08:53)
[2022-08-29] MEDS ORDERED: VENTOLIN HFA IN (14:30)
[2022-08-29] MEDS ORDERED: ADVAIR DISK1 IN (14:33)
[2022-08-29] MEDS ORDERED: PLAVIX75 MG PO (14:33)
[2022-08-30] VITALS (24 sets, daily range): BP systolic 98–120; BP diastolic 51–67
[2022-08-30 04:08] LABS: HEMATOCRIT 38.9 % (39.0-50.0); HEMOGLOBIN 12.3 g/dl (14.0-18.0); MEAN CELL VOLUME 93.7 fL CALC (80.0-100.0); MEAN CORPUSCULAR HGB 29.6 pG CALC (26.0-32.0); MEAN CORPUSCULAR HGB CONC 31.6 g/dL CAL (32.0-36.0); RED BLOOD COUNT 4.15 mill/uL (4.70-6.10); RED CELL DISTRI WIDTH 13.9 % (11.5-15.5)
[2022-08-30 04:24] LABS: ALBUMIN 3.5 g/dL (3.2-5.0); ALKALINE PHOSPHATASE 76 u/l (38-126); ANION GAP 10 (6-22 (CALC)); BILIRUBIN, TOTAL 0.3 mg/dL (0.2-1.3); BUN 22 mg/dL (8-23); BUN/CREATININE RATIO 27 (12-20 (CALC)); CARBON DIOXIDE 28 mmol/l (22-30); CHLORIDE 105 mmol/l (95-108); CREATININE 0.8 mg/dL (0.7-1.3); GFR FOR AFR.AMER. > 60 ML/MIN (>=60 (CALC)); GFR OTHER RACES > 60 ML/MIN (>=60 (CALC)); MAGNESIUM 2.3 mg/dL (1.6-2.3); POTASSIUM 4.4 mmol/l (3.5-5.1); SGOT/AST 16 u/l (19-48); SODIUM 138 mmol/l (137-146); TOTAL PROTEIN 6.8 g/dL (6.3-8.2)
[2022-08-30] MEDS ORDERED: COREG12.5 MG PO (12:34)
[2022-08-30 16:04] LABS: URINE BILIRUBIN - DIPSTICK NEGATIVE (NEGATIVE); URINE BLOOD DIPSTICK NEGATIVE (NEGATIVE); URINE COLOR YELLOW; URINE GLUCOSE - DIPSTICK NEGATIVE (NEGATIVE); URINE KETONE NEGATIVE (NEGATIVE); URINE LEUK ESTERASE NEGATIVE (NEGATIVE); URINE PROTEIN - DIPSTICK TRACE mg/dL (NEG-TRACE); URINE SPECIFIC GRAVITY >=1.030; URINE UROBILINOGEN - DIPSTICK 0.2 E.U./dL (0.2)
[2022-08-30 16:05] LABS: URINE NITRITE - DIPSTICK NEGATIVE (Negative)
[2022-08-31] VITALS (11 sets, daily range): BP systolic 109–132; BP diastolic 56–68
[2022-08-31 05:17] LABS: HEMATOCRIT 36.5 % (39.0-50.0); HEMOGLOBIN 11.7 g/dl (14.0-18.0); MEAN CELL VOLUME 92.9 fL CALC (80.0-100.0); MEAN CORPUSCULAR HGB 29.8 pG CALC (26.0-32.0); MEAN CORPUSCULAR HGB CONC 32.1 g/dL CAL (32.0-36.0); RED BLOOD COUNT 3.93 mill/uL (4.70-6.10); RED CELL DISTRI WIDTH 13.6 % (11.5-15.5)
[2022-08-31 05:32] LABS: ALBUMIN 3.3 g/dL (3.2-5.0); ALKALINE PHOSPHATASE 66 u/l (38-126); ANION GAP 7 (6-22 (CALC)); BILIRUBIN, TOTAL 0.2 mg/dL (0.2-1.3); BUN 25 mg/dL (8-23); BUN/CREATININE RATIO 33 (12-20 (CALC)); CARBON DIOXIDE 26 mmol/l (22-30); CHLORIDE 106 mmol/l (95-108); CREATININE 0.8 mg/dL (0.7-1.3); GFR FOR AFR.AMER. > 60 ML/MIN (>=60 (CALC)); GFR OTHER RACES > 60 ML/MIN (>=60 (CALC)); MAGNESIUM 2.2 mg/dL (1.6-2.3); POTASSIUM 4.5 mmol/l (3.5-5.1); SODIUM 135 mmol/l (137-146); TOTAL PROTEIN 6.5 g/dL (6.3-8.2)
[2022-08-31 05:39] LABS: SGOT/AST 30 u/l (19-48)
[2022-08-31] MEDS ORDERED: PREDNISONE10 MG PO (11:21)
[2022-08-31] MEDS ORDERED: LEVAQUIN750 M1 PO (11:21)
== END 2022-08-31 14:18 | disposition home or self-care (01) ==
LOC: ED 01:44 → ICU 05:08 → ED 05:08 → ICU 05:08 → ED 10:05 → ICU 08-31 14:18
PROVIDERS: Emergency Medicine; ADMIT Internal Medicine; ATTEND Internal Medicine
PROC: 5A09357 Assistance with Respiratory Ventilation, Less than 24 Consecutive Hours, Continuous Positive Airway Pressure (ICD-10-PCS; principal; 2022-08-29)
DX: J44.1 Chronic obstructive pulmonary disease with (acute) exacerbation (principal); J96.21 Acute and chronic respiratory failure with hypoxia; J96.22 Acute and chronic respiratory failure with hypercapnia; E11.51 Type 2 diabetes mellitus with diabetic peripheral angiopathy without gangrene; E11.40 Type 2 diabetes mellitus with diabetic neuropathy, unspecified; I25.10 Atherosclerotic heart disease of native coronary artery without angina pectoris; I25.5 Ischemic cardiomyopathy; I10 Essential (primary) hypertension; I69.90 Unspecified sequelae of unspecified cerebrovascular disease; G89.4 Chronic pain syndrome; E78.5 Hyperlipidemia, unspecified; G47.30 Sleep apnea, unspecified; I25.2 Old myocardial infarction; F17.210 Nicotine dependence, cigarettes, uncomplicated; Z79.84 Long term (current) use of oral hypoglycemic drugs; Z86.718 Personal history of other venous thrombosis and embolism; Z86.711 Personal history of pulmonary embolism; Z95.820 Peripheral vascular angioplasty status with implants and grafts; Z95.828 Presence of other vascular implants and grafts; Z79.02 Long term (current) use of antithrombotics/antiplatelets; Z95.5 Presence of coronary angioplasty implant and graft; Z99.81 Dependence on supplemental oxygen; Z20.822 Contact with and (suspected) exposure to COVID-19; Z79.82 Long term (current) use of aspirin
CPT/HCPCS: J1650